=== PATIENT | female | born 1995 | race African-American/Black ===

== ENCOUNTER 2016-09-22 04:14 | Emergency (ER) | payer BC ==
[2016-09-22 04:55] LABS: BASOPHIL# 0.1 X10e3 (0-0.3); BASOPHIL% 1.1 % (0-2.5); EOSINOPHIL% 0.2 % (0.0-7.0); HEMATOCRIT 41.8 % (35.0-45.0); HEMOGLOBIN 13.4 gm/dL (12.0-16.0); LYMPHOCYTE# 2.1 X10e3 (1.0-3.5); LYMPHOCYTE% 18.7 % (17.0-45.0); MEAN CELL VOLUME 94.2 FL (83-96); MEAN CORPUSCULAR HEMOGLOBIN 30.2 PG (28-34); MONOCYTE# 1.2 X10e3 (0-1.0); MONOCYTE% 10.7 % (3.0-12.0); NEUTROPHIL# 7.7 X10e3 (1.5-7.1); NEUTROPHIL% 69.3 % (40-75); PLATELET COUNT 277 X10e3 (140-420); RED BLOOD COUNT 4.44 X10e (3.90-5.30); RED CELL DISTRIBUTION WIDTH 14.5 % (11.0-15.5); WHITE BLOOD COUNT 11.2 X10e3 (4.0-10.5)
[2016-09-22 04:58] LABS: DIFF IND NO
[2016-09-22 05:27] LABS: ALBUMIN SERUM 5.5 g/dL (3.5-5.0); BILIRUBIN, DIRECT 0.2 mg/dL (0.0-0.2); BILIRUBIN,INDIRECT 0.5 mg/dL (0.0-0.9); BILIRUBIN,TOTAL 0.7 mg/dL (0.2-2.0); BUN/CREATININE RATIO 23.33; CREATININE SERUM 0.6 mg/dL (0.6-1.4); POTASSIUM 3.8 mmol/L (3.5-5.1); PROTEIN TOTAL SERUM 9.4 g/dL (6.0-8.3)
[2016-09-22 06:48] LABS: CULTURE INDICATED? YES; URBCS1 AUWI 100-200 /[HPF] (0-2); URINE APPEARANCE TURBID; URINE BACTERIA AUWI 2+ (NEGATIVE); URINE BLOOD 3+ (NEG); URINE COLOR ORANGE; URINE GLUCOSE NEG (NEG); URINE KETONE 3+ (NEG); URINE LEUKOCYTE ESTERASE TRACE (NEG); URINE NITRATE NEG (NEG); URINE PH 5.5 (5-8); URINE PROTEIN 1+ (NEG); URINE SOURCE CLEAN CATCH; URINE SPECIFIC GRAVITY 1.038 (1.003-1.035); URINE SQUAMOUS EPITHELIAL CELL MOD /[HPF]
[2016-09-22 07:04] LABS: URINE BILIRUBIN NEG (NEG); URINE MUCUS PRESENT
[2016-09-22 07:05] LABS: URINE TRANSITIONAL EPI CELLS MODERATE /[HPF]
[2016-09-22 07:23] LABS: AMPHETAMINE NEG (NEG); BARBITURATES NEG (NEG); BENZODIAZEPINES NEG (NEG); COCAINE NEG (NEG); MARIJUANA POS (NEG); OPIATES NEG (NEG); TRICYCLIC ANTIDEPRESSANTS NEG (NEG); U METHADONE NEG (NEG)
== END 2016-09-22 09:20 | disposition home or self-care (01) ==
LOC: CED 04:14
PROVIDERS: Physician Assistant
DX: R11.2 Nausea with vomiting, unspecified (principal); K21.9 Gastro-esophageal reflux disease without esophagitis; I10 Essential (primary) hypertension; F17.200 Nicotine dependence, unspecified, uncomplicated; Z88.8 Allergy status to other drugs, medicaments and biological substances; Z88.1 Allergy status to other antibiotic agents
CPT/HCPCS: 36415; 80048; 80076; 80307; 81003; 83690; 84703; 85025; 87086; 96361; 96374; 96375; 99284; J2405; J2550

== ENCOUNTER 2016-10-04 10:18 | Emergency (ER) | payer BC | END 2016-10-04 11:18 | disposition home or self-care (01) | LOC: CFTX 10:18 → CED 10:18 → CFTX 11:17 | DX: J06.9 Acute upper respiratory infection, unspecified (principal); H66.92 Otitis media, unspecified, left ear; I10 Essential (primary) hypertension; Z88.1 Allergy status to other antibiotic agents; Z88.8 Allergy status to other drugs, medicaments and biological substances | CPT/HCPCS: 99283 ==

== ENCOUNTER 2016-11-30 13:33 | Emergency (ER) | payer BC ==
[~2016-11-30] VITALS: Ht 165.1 cm; Wt 47.6 kg
[2016-11-30 14:43] LABS: URINE SOURCE CLEAN CATCH
[2016-11-30 14:51] LABS: BASOPHIL# 0.1 X10e3 (0-0.3); BASOPHIL% 1.2 % (0-2.5); EOSINOPHIL% 0.4 % (0.0-7.0); HEMATOCRIT 39.4 % (35.0-45.0); HEMOGLOBIN 12.9 gm/dL (12.0-16.0); LYMPHOCYTE# 1.6 X10e3 (1.0-3.5); LYMPHOCYTE% 17.8 % (17.0-45.0); MEAN CELL VOLUME 90.1 FL (83-96); MEAN CORPUSCULAR HEMOGLOBIN 29.5 PG (28-34); MEAN CORPUSCULAR HGB CONC 32.7 g/dL (30-36); MEAN PLATELET VOLUME 9.7 FL (6.5-11.5); MONOCYTE# 0.4 X10e3 (0-1.0); MONOCYTE% 4.9 % (3.0-12.0); NEUTROPHIL# 6.9 X10e3 (1.5-7.1); NEUTROPHIL% 75.7 % (40-75); PLATELET COUNT 264 X10e3 (140-420); RED BLOOD COUNT 4.37 X10e (3.90-5.30); RED CELL DISTRIBUTION WIDTH 14.1 % (11.0-15.5); WHITE BLOOD COUNT 9.1 X10e3 (4.0-10.5)
[2016-11-30 14:52] LABS: URINE APPEARANCE CLOUDY; URINE BILIRUBIN NEG (NEG); URINE BLOOD 3+ (NEG); URINE COLOR YELLOW; URINE GLUCOSE NEG (NEG); URINE KETONE 3+ (NEG); URINE LEUKOCYTE ESTERASE 1+ (NEG); URINE NITRATE NEG (NEG); URINE PH 7.5 (5-8); URINE PROTEIN 1+ (NEG); URINE SPECIFIC GRAVITY 1.034 (1.003-1.035)
[2016-11-30 14:52] LABS: DIFF IND NO
[2016-11-30 14:56] LABS: CULTURE INDICATED? YES; URINE BACTERIA AUWI 2+ (NEGATIVE); URINE SQUAMOUS EPITHELIAL CELL FEW /[HPF]
[2016-11-30 15:29] LABS: ALBUMIN SERUM 5.3 g/dL (3.5-5.0); BILIRUBIN, DIRECT 0.1 mg/dL (0.0-0.2); BILIRUBIN,INDIRECT 0.7 mg/dL (0.0-0.9); BILIRUBIN,TOTAL 0.8 mg/dL (0.2-2.0); CREATININE SERUM 0.5 mg/dL (0.6-1.4); GLOM FILT RATE Estimated 160.4 mL/min (>60); POTASSIUM 3.5 mmol/L (3.5-5.1); PROTEIN TOTAL SERUM 8.7 g/dL (6.0-8.3)
== END 2016-11-30 16:00 | disposition home or self-care (01) ==
LOC: CED 13:33
PROVIDERS: Emergency Medicine
DX: N39.0 Urinary tract infection, site not specified (principal); Z88.1 Allergy status to other antibiotic agents; Z88.8 Allergy status to other drugs, medicaments and biological substances
CPT/HCPCS: 36415; 80048; 80076; 81003; 83690; 84703; 85025; 87086; 96361; 96374; 99284; J2405

== ENCOUNTER 2016-11-30 23:47 | Emergency (ER) | payer BC ==
[~2016-11-30] VITALS: Ht 165.1 cm; Wt 47.6 kg
== END 2016-12-01 02:00 | disposition home or self-care (01) ==
LOC: CED 23:47
DX: R11.2 Nausea with vomiting, unspecified (principal); I10 Essential (primary) hypertension; E78.5 Hyperlipidemia, unspecified; F17.200 Nicotine dependence, unspecified, uncomplicated; Z88.8 Allergy status to other drugs, medicaments and biological substances; Z88.1 Allergy status to other antibiotic agents
CPT/HCPCS: 84703; 96372; 99284; J2550